=== PATIENT | male | born 1945 | race Two or more races ===

== ENCOUNTER 2025-10-28 03:06 | Inpatient (IN) | payer MEDICARE, MEDICAID ==
[~2025-10-28] VITALS: Ht 167.6 cm; Wt 55.5 kg
--- NOTE | 2025-10-28 03:48 | ED.PDOC ---
History of Present Illness HPI Comments 79 y/o M is BIBA from private residence for c/c of leaking Elaine catheter with associated suprapubic abdominal pain. Chief Complaint: Urinary Time Seen by MD: 03:40 Reviewed Notes: Nurses Notes, Tire Service Supervisor Notes, Medications, Allergies Allergies: Coded Allergies: Bupropion (Unverified Allergy, Unknown, 10/28/25) Information Source: Patient, Emergency Med Personnel Mode of Arrival: EMS Severity: Moderate Timing: Hours Duration: Since onset Prehospital treatment: None Past Medical History PAST MEDICAL HISTORY: Denies Social History Smoker: Non-Smoker Alcohol: Denies ETOH Use Drugs: Denies Drug Use Lives In: Home All Other Systems: Reviewed and Negative (As per HPI) Physical Exam General Appearance: No Apparent Distress, Normal HEENT: Normal ENT Inspection, Pharynx Normal, TMs Normal Neck: Full Range of Motion, Non-Tender, Normal, Normal Inspection Respiratory: Chest Non-Tender, Lungs Clear, No Accessory Muscle Use, No Respiratory Distress, Normal Breath Sounds Cardiovascular: No Edema, No JVD, No Murmur, No Gallop, Normal Peripheral Pulses, Regular Rate/Rhythm Breast Exam: Deferred Gastrointestinal: No Organomegaly, Non Tender, No Pulsatile Mass, Normal Bowel Sounds, Soft, Suprapubic (tenderness ), Tenderness (suprapubic) Genitalia: Other (leaking indwelling Elaine catheter) Pelvic: Deferred Rectal: Deferred Extremities: No calf tenderness, Normal capillary refill, Normal inspection, Normal range of motion, Non-tender, No pedal edema Musculoskeletal : Apperance: Normal Neurologic: Alert, project finance analyst II-XII nml as Tested, No Motor Deficits, Normal Affect, Normal Mood, No Sensory Deficits Cerebellar Function: Normal Reflexes: Normal Skin: Dry, Normal Color, Warm Lymphatic: No Adenopathy Was a procedure done? Was a procedure done?: No Differential Dx Considerations may include: Differential diagnosis includes but not limited to: UTI, pyelonephritis, urinary retention, renal failure, sepsis and others X-Ray, Labs, Meds, VS Vital Signs Date Time Temp Pulse Resp B/P (MAP) Pulse Ox O2 Delivery O2 Flow Rate FiO2 10/28/25 04:05 97.9 66 19 92/55 (67) 97 97.9 10/28/25 03:10 99.1 71 18 118/71 98 99.1 Lab Test 10/28/25 03:47 Range/Units White Blood Count 8.5 4.4-10.8 10^3/uL Red Blood Count 4.12 L 4.5-5.90 10^6/uL Hemoglobin 12.8 L 13.5-17.5 g/dL Hematocrit 38.8 L 41.0-53.0 % Mean Corpuscular Volume 94.1 80.0-100.0 fL Mean Corpuscular Hemoglobin 31.0 28.0-32.0 pg Mean Corpuscular Hemoglobin Concent 32.9 32.0-36.0 g/dL Red Cell Distribution Width 17.2 H 11.8-14.3 % Platelet Count 354 140-450 10^3/uL Mean Platelet Volume 8.3 6.9-10.8 fL Neutrophils (%) (Auto) 84.6 H 37.0-80.0 % Lymphocytes (%) (Auto) 9.0 L 10.0-50.0 % Monocytes (%) (Auto) 5.9 0.0-12.0 % Eosinophils (%) (Auto) 0.3 0.0-7.0 % Basophils (%) (Auto) 0.2 0.0-2.0 % Neutrophils # (Auto) 7.2 1.6-8.6 10 ^3/uL Lymphocytes # (Auto) 0.8 0.4-5.4 10 ^3/uL Monocytes # (Auto) 0.5 0-1.3 10 ^3/uL Eosinophils # (Auto) 0 0-0.8 10 ^3/uL Basophils # (Auto) 0 0-0.2 10 ^3/uL Nucleated Red Blood Cells 0.0 % Sodium Level 142 136-145 mmol/L Potassium Level 3.4 L 3.5-5.1 mmol/L Chloride Level 108 H 98-107 mmol/L Carbon Dioxide Level 24 20-31 mmol/L Anion Gap 10 5-15 Blood Urea Nitrogen 16 9-23 mg/dL Creatinine 1.09 0.700-1.30 mg/dL Glomerular Filtration Rate Calc 70 >90 mL/min BUN/Creatinine Ratio 14.7 10.0-20.0 Serum Glucose 95 74-106 mg/dL Calcium Level 8.9 8.7-10.4 mg/dL Time of 1ST Reevaluation: 04:20 Reevaluation 1ST: Unchanged Patient Education/Counseling: Diagnosis, Treatment Family Education/Counseling: No Family Present SEPSIS Sepsis Screen Date sepsis recognized/suspect: Oct 28, 2025 Time Sepsis recognized/suspect: 309 Recent Procedure: No On Antibiotic Therapy: No Respiratory Rate >20: No Heart Rate >90: No Temp<36 C (96.8 F) or >38.3 C: No SBP <90 or MAP <65 mmHG: No New Acute Mental Status Change: No Is the patient on CPAP, BIPAP,: No Physician Orders Discontinue Elaine Catheter (10/28/25 03:36) Insert Elaine Catheter QSHIFT (10/28/25 03:36) Urinalysis (10/28/25 03:36) Vital Signs Date Time Temp Pulse Resp B/P (MAP) Pulse Ox O2 Delivery O2 Flow Rate FiO2 10/28/25 04:05 97.9 66 19 92/55 (67) 97 97.9 10/28/25 03:10 99.1 71 18 118/71 98 99.1 Laboratory Tests Test 10/28/25 03:47 White Blood Count 8.5 10^3/uL (4.4-10.8) Departure 1 Departure Time of Disposition: 03:00 Impression: Primary Impression: Urinary retention Additional Impressions: Complication of Elaine catheter UTI (urinary tract infection) Disposition: 01 HOME / SELF CARE / HOMELESS Condition: Stable Discharged With: Self Critical Care Note Critical Care Time?: No Stability Stability form required: No Heart Score Heart Score: Heart Score Response (Comments) Value History N/A 0 EKG N/A 0 Age N/A 0 Risk Factors N/A 0 Troponin N/A 0 Total 0 I personally scribed for ALEJANDRA OBREGON MD ([email or web address]) on 10/28/25 at 03:48. Electronically submitted by Chris Wade [email or web address]). ALEJANDRA OBREGON MD Oct 28, 2025 03:48
[2025-10-28 04:15] LABS: Hematocrit 38.8 % (41.0-53.0); Hemoglobin 12.8 g/dL (13.5-17.5); Mean Corpuscular Hemoglobin 31.0 pg (28.0-32.0); Mean Corpuscular Volume 94.1 fL (80.0-100.0); Nucleated Red Blood Cells % 0.0 %
[2025-10-28 04:31] LABS: Sodium 142 mmol/L (136-145)
[2025-10-28 04:32] LABS: Anion Gap 10 (5-15); Carbon Dioxide 24 mmol/L (20-31)
[2025-10-28 04:33] LABS: Calcium 8.9 mg/dL (8.7-10.4)
[2025-10-28 04:37] LABS: Glucose 95 mg/dL (74-106)
[2025-10-28 04:38] LABS: BUN/Creatinine Ratio 14.7 (10.0-20.0); Blood Urea Nitrogen 16 mg/dL (9-23)
[2025-10-28 04:47] LABS: Chloride 108 mmol/L (98-107); Potassium 3.4 mmol/L (3.5-5.1)
[2025-10-28] MEDS ORDERED: NITR-87 PO (05:41)
[2025-10-28] MEDS: cefTRIAXone W LIDOCAINE 1 GM IM IM ONE (06:09)
[2025-10-28] MEDS: cefTRIAXone SOD 1,000 MG VL ONE (06:10)
[2025-10-28] MEDS: LIDOCAINE 2%HCL (LOCAL ANESTH.) INJ 10ml MDV ONE (06:10)
[2025-10-28 07:30] LABS: Urine Protein, UAD TRACE (Negative); Urine WBC Clumps PRESENT /hpf (None Seen)
[2025-10-28 07:50] VITALS: PULSE 62; RESP 16; O2SAT 97
[2025-10-28 19:52] VITALS: PULSE 72; RESP 24; O2SAT 95
[2025-10-29] MEDS: ACETAMINOPHEN 325 MG TAB PO ONE (05:47)
--- NOTE | 2025-10-29 09:44 | ED.PDOC ---
Departure 1 Departure Time of Disposition: 09:43 (Patient is not septic. Patient presents with a catheter associated urinary tract infection. Patient with a complicated UTI and we will admit patient for further workup and expert consultation) Impression: Primary Impression: Urinary retention Additional Impressions: UTI (urinary tract infection) Complication of Elaine catheter Disposition: 09 ADMITTED INPATIENT Admit to: Med Surg Condition: Guarded e-Prescriptions Nitrofurantoin Monohydrate Mac (Macrobid) 100 Mg Cap 100 MG PO BID for 10 Days, #20 CAP Prov: ALEJANDRA OBREGON MD 10/28/25 Discharged With: Self ANDREINA PURI MD Oct 29, 2025 09:44
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
[2025-10-29] MEDS ORDERED: ONDANSETRON HCL 4 MG/2 ML VIAL IV PRN (13:15)
[2025-10-29] MEDS ORDERED: NITROGLYCERIN 0.4 MG SL TAB SL PRN (13:15)
[2025-10-29] MEDS ORDERED: DOCUSATE SOD 100 MG CAP PO PRN (13:15)
[2025-10-29 14:22] VITALS: RESP 15; O2SAT 98
[2025-10-29 15:25] VITALS: RESP 18
[2025-10-29 17:00] VITALS: BP 118/56; PULSE 62; RESP 18; TEMP 97.9; O2SAT 97
[2025-10-29 20:00] VITALS: PULSE 60; RESP 17
[2025-10-29 21:00] VITALS: BP 124/64; PULSE 59; RESP 18; TEMP 97.9; O2SAT 97
[2025-10-29] MEDS ORDERED: ACETAMINOPHEN 325 MG TAB PO PRN (23:15)
[2025-10-30] VITALS (8 sets, daily range): BP systolic 102–123; BP diastolic 52–77; PULSE 58–98; RESP 18–93; TEMP 97.9–99.1; O2SAT 90–96
[2025-10-30] MEDS: ACETAMINOPHEN 500 MG TAB or CAP PO PRN (00:14)
[2025-10-30 06:24] LABS: Hematocrit 31.5 % (41.0-53.0); Hemoglobin 10.6 g/dL (13.5-17.5); Mean Corpuscular Hemoglobin 31.3 pg (28.0-32.0); Mean Corpuscular Volume 93.3 fL (80.0-100.0); Nucleated Red Blood Cells % 0.0 %
[2025-10-30 06:46] LABS: Alkaline Phosphatase 86 U/L (46-116); Anion Gap 8 (5-15); BUN/Creatinine Ratio 16.7 (10.0-20.0); Blood Urea Nitrogen 14 mg/dL (9-23); Carbon Dioxide 24 mmol/L (20-31); Glucose 91 mg/dL (74-106)
[2025-10-30 06:51] LABS: Alanine Aminotransferase < 9 U/L (7-40); Albumin 2.8 g/dL (3.2-4.8); Bilirubin, Total 0.2 mg/dL (0.2-1.0); Calcium 8.3 mg/dL (8.7-10.4); Chloride 114 mmol/L (98-107); Potassium 3.4 mmol/L (3.5-5.1); Sodium 146 mmol/L (136-145); Total Protein 5.3 g/dL (5.7-8.2)
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
[2025-10-31 05:00] VITALS: BP 118/66; PULSE 56; RESP 18; TEMP 97.4; O2SAT 95
[2025-10-31 08:00] VITALS: RESP 17
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
[2025-10-31 13:00] VITALS: BP 105/57; PULSE 86; RESP 18; TEMP 98.4; O2SAT 90
[2025-10-31 17:00] VITALS: BP 112/68; PULSE 92; RESP 17; TEMP 98.6; O2SAT 92
[2025-10-31 19:37] VITALS: RESP 17
[2025-10-31 21:00] VITALS: BP 108/63; PULSE 74; RESP 18; TEMP 99.1; O2SAT 92
[2025-11-01] VITALS (8 sets, daily range): BP systolic 117–155; BP diastolic 59–98; PULSE 66–74; RESP 16–20; TEMP 98.1–99; O2SAT 91–97
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
--- NOTE | 2025-11-01 15:24 | MEDREC ---
[facility] Intervention Section I [facility] Intervention: Deescalate AB based on CS (FINAL URINE CULTURE WITH NO GROWTH - PLEASE CONSIDER D/C ANTIBIOTIC IN ABSENCE OF BACTERIAL INFECTION) Assessment of apprpriate abx f: UTI KE VILLA PHARMACIST Nov 01, 2025 15:24
[2025-11-02] VITALS (8 sets, daily range): BP systolic 100–139; BP diastolic 64–93; PULSE 64–104; RESP 16–18; TEMP 97.8–98.4; O2SAT 92–98
[2025-11-02 11:16] LABS: Potassium 4.6 mmol/L (3.5-5.1); Sodium 143 mmol/L (136-145)
[2025-11-02 11:17] LABS: Anion Gap 7 (5-15); Carbon Dioxide 26 mmol/L (20-31)
[2025-11-02 11:19] LABS: Calcium 8.3 mg/dL (8.7-10.4); Chloride 110 mmol/L (98-107)
[2025-11-02 11:22] LABS: BUN/Creatinine Ratio 18.3 (10.0-20.0); Blood Urea Nitrogen 17 mg/dL (9-23); Glucose 106 mg/dL (74-106)
[2025-11-02 13:48] LABS: Hematocrit 35.6 % (41.0-53.0); Hemoglobin 11.8 g/dL (13.5-17.5); Mean Corpuscular Hemoglobin 31.1 pg (28.0-32.0); Mean Corpuscular Volume 94.0 fL (80.0-100.0); Nucleated Red Blood Cells % 0.1 %
--- NOTE | 2025-11-02 14:07 | DVHDS2 ---
Discharge Summary Date of Admission Oct 29, 2025 at 13:01 Labs/Diagnostic Data: Laboratory Results Test 11/02/25 13:16 11/02/25 10:36 10/30/25 05:25 10/28/25 03:36 White Blood Count 8.0 10^3/uL (4.4-10.8) Red Blood Count 3.79 10^6/uL (4.5-5.90) Hemoglobin 11.8 g/dL (13.5-17.5) Hematocrit 35.6 % (41.0-53.0) Mean Corpuscular Volume 94.0 fL (80.0-100.0) Mean Corpuscular Hemoglobin 31.1 pg (28.0-32.0) Mean Corpuscular Hemoglobin Concent 33.0 g/dL (32.0-36.0) Red Cell Distribution Width 17.5 % (11.8-14.3) Platelet Count 251 10^3/uL (140-450) Mean Platelet Volume 8.6 fL (6.9-10.8) Neutrophils (%) (Auto) 85.8 % (37.0-80.0) Lymphocytes (%) (Auto) 8.0 % (10.0-50.0) Monocytes (%) (Auto) 4.6 % (0.0-12.0) Eosinophils (%) (Auto) 1.3 % (0.0-7.0) Basophils (%) (Auto) 0.3 % (0.0-2.0) Neutrophils # (Auto) 6.8 10 ^3/uL (1.6-8.6) Lymphocytes # (Auto) 0.6 10 ^3/uL (0.4-5.4) Monocytes # (Auto) 0.4 10 ^3/uL (0-1.3) Eosinophils # (Auto) 0.1 10 ^3/uL (0-0.8) Basophils # (Auto) 0 10 ^3/uL (0-0.2) Nucleated Red Blood Cells 0.1 % Sodium Level 143 mmol/L (136-145) Potassium Level 4.6 mmol/L (3.5-5.1) Chloride Level 110 mmol/L (98-107) Carbon Dioxide Level 26 mmol/L (20-31) Anion Gap 7 (5-15) Blood Urea Nitrogen 17 mg/dL (9-23) Creatinine 0.93 mg/dL (0.700-1.30) Glomerular Filtration Rate Calc 85 mL/min (>90) BUN/Creatinine Ratio 18.3 (10.0-20.0) Serum Glucose 106 mg/dL (74-106) Calcium Level 8.3 mg/dL (8.7-10.4) Total Bilirubin 0.2 mg/dL (0.2-1.0) Aspartate Amino Transferase (AST) 16 U/L (13-40) Alanine Aminotransferase (ALT) < 9 U/L (7-40) Alkaline Phosphatase 86 U/L (46-116) Total Protein 5.3 g/dL (5.7-8.2) Albumin 2.8 g/dL (3.2-4.8) Urine Color Light-yellow (Yellow) Urine Clarity Cloudy (Clear) Urine pH 6.0 (5.0-9.0) Urine Specific [place] 1.010 (1.001-1.035) Urine Protein Trace (Negative) Urine Ketones Negative (Negative) Urine Blood 1+ /uL (Negative) Urine Nitrite Negative (Negative) Urine Bilirubin Negative (Negative) Urine Urobilinogen Normal mg/dL (Negative) Urine Leukocyte Esterase 3+ /uL (Negative) Urine RBC 7 /hpf (0 - 3) Urine WBC Clumps Present /hpf (None Seen) Urine Microscopic WBC 604 /HPF (0-3) Urine Squamous Epithelial Cells Few /hpf (<5) Urine Bacteria Few /hpf (None Seen) Urine Glucose 4+ mg/dL (Normal) Other Laboratory Tests 11/02/25 13:16 11/02/25 10:36 Discharge Instruct/Medications Scheduled Ciprofloxacin Hcl (Cipro), 1 TAB PO BID Nitrofurantoin Monohydrate Mac (Macrobid), 100 MG PO BID Discharge Statement: "Patient was advised to return to the ER or call 911 if any headaches, dizziness, shortness of breath, chest pain, abdominal pain, bleeding, fevers, or worsening of medical condition. Patient was counseled about treatment plan, medications, possible side effects, patientverbalized understanding. All questions were answered to the best of my ability. This discharge took greater then 30 minutes in planning, reviewing documentation, counseling the patient, and discussing with other team members." ASSESSMENT ASSESSMENT Assessment JANI ASHLEY NP Nov 02, 2025 14:07
[2025-11-02] MEDS ORDERED: CIPR-173 PO (14:08)
--- NOTE | 2025-11-02 20:10 | DVHPN2 ---
Progress Note - Dictate Date Seen: Nov 02, 2025 Medical Necessity Reason Pt with a Central, PICC or Fol: No vital signs Vital Sign Date Time Temp Pulse Resp B/P (MAP) Pulse Ox O2 Delivery O2 Flow Rate FiO2 11/02/25 16:36 97.8 78 16 124/77 (93) 92 97.8 11/02/25 08:00 Room Air* 0 21 Total Intake and Output 11/01/25 11/01/25 11/02/25 15:00 23:00 07:00 Intake Total 818 ml 560 ml Output Total 650 ml 800 ml Balance 168 ml -240 ml medications Current Medications Medications Dose Ordered Sig/Tu Route Start Time Stop Time Status Last Admin Dose Admin Ondansetron HCl 4 mg Q4HP PRN IV 10/29/25 13:15 Docusate Sodium 100 mg BIDPRN PRN PO 10/29/25 13:15 Nitroglycerin 0.4 mg Q5MINP PRN SL 10/29/25 13:15 Ceftriaxone Sodium 50 ml @ 100 mls/hr DAILY@09 IV 10/30/25 09:00 11/02/25 10:02 100 MLS/HR Acetaminophen 500 mg Q6HP PRN PO 10/29/25 23:45 11/01/25 16:54 500 MG objective General Appearance: alert, no distress HEENT: EOMI, PERRLA, normal external inspect of ears, no icterus, no nasal drainage Neck: no carotid bruit, no jugular venous distention (JVD), no lymphadenopathy Chest: normal thorax Respiratory: clear to auscultation, normal air movement Cardiovascular: regular rate and rhythm, no diastolic murmur, no jugular venous distention (JVD), no rub, no systolic murmur Abdominal: soft, no hepatomegaly, no mass, no splenomegaly, no tenderness Genitourinary: grossly normal external Musculoskeletal: no joint tenderness, no swelling Extremities: normal pulses, no calf tenderness, no clubbing, no cyanosis, no edema Skin: no bruising, no jaundice, no rash Neurological: alert, No focal deficit laboratory and microbiology Laboratory Tests 11/02/25 13:16 11/02/25 10:36 Test 11/02/25 10:36 Range/Units Serum Glucose 106 74-106 mg/dL Problem List 1. Sepsis from UTI Monitor, IV abx 2. 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 Smoker Monitor, smoking cessation education 5. Homelessness Monitor, social science professor consult Assessment/Plan Subjective: Patient is awake and alert. Objective: Patient was admitted on 10/29/2025 for sepsis related to UTI. UTI was in relation to a chronic Barrios catheter. Patient is homeless and had not received any follow-up from his prior admission several months ago. Patient was found to have acute urinary retention and a new Barrios catheter was placed. Patient was found to be leaking from the Barrios catheter, and a new 18 [place] Barrios catheter was placed. Patient is a chronic smoker. tax services manager was consulted, and patient was placed in a skilled nursing. Plan: Home health services arranged to replace Barrios catheter monthly. Smoking education given. Continue antibiotics with oral Cipro twice daily for 7 days, sent to [facility] pharmacy. Patient instructed to establish with a primary care provider. Ride could not be arranged until morning, so discharge planned for the morning. Plan discussed with: Patient, Other JANI ASHLEY NP Nov 02, 2025 20:10
[2025-11-03 01:00] VITALS: BP_SYST 103; BP_SYST 148; BP_DIAS 60; BP_DIAS 99; PULSE 74; PULSE 77; RESP 17; RESP 18; TEMP 98.1; TEMP 99.6; O2SAT 94; O2SAT 99
[2025-11-03 05:00] VITALS: BP 112/72; PULSE 69; RESP 18; TEMP 98.1; O2SAT 94
[2025-11-03 08:50] VITALS: BP 128/74; PULSE 65; RESP 14; TEMP 97.9; O2SAT 95
[2025-11-03 12:50] VITALS: BP 122/64; PULSE 64; RESP 14; TEMP 97.8; O2SAT 95
--- NOTE | 2025-11-03 13:06 | DVHDS2 ---
Discharge Summary Date of Admission Oct 29, 2025 at 13:01 Date of Discharge: Nov 02, 2025 Labs/Diagnostic Data: Laboratory Results Test 11/02/25 13:16 11/02/25 10:36 10/30/25 05:25 10/28/25 03:36 White Blood Count 8.0 10^3/uL (4.4-10.8) Red Blood Count 3.79 10^6/uL (4.5-5.90) Hemoglobin 11.8 g/dL (13.5-17.5) Hematocrit 35.6 % (41.0-53.0) Mean Corpuscular Volume 94.0 fL (80.0-100.0) Mean Corpuscular Hemoglobin 31.1 pg (28.0-32.0) Mean Corpuscular Hemoglobin Concent 33.0 g/dL (32.0-36.0) Red Cell Distribution Width 17.5 % (11.8-14.3) Platelet Count 251 10^3/uL (140-450) Mean Platelet Volume 8.6 fL (6.9-10.8) Neutrophils (%) (Auto) 85.8 % (37.0-80.0) Lymphocytes (%) (Auto) 8.0 % (10.0-50.0) Monocytes (%) (Auto) 4.6 % (0.0-12.0) Eosinophils (%) (Auto) 1.3 % (0.0-7.0) Basophils (%) (Auto) 0.3 % (0.0-2.0) Neutrophils # (Auto) 6.8 10 ^3/uL (1.6-8.6) Lymphocytes # (Auto) 0.6 10 ^3/uL (0.4-5.4) Monocytes # (Auto) 0.4 10 ^3/uL (0-1.3) Eosinophils # (Auto) 0.1 10 ^3/uL (0-0.8) Basophils # (Auto) 0 10 ^3/uL (0-0.2) Nucleated Red Blood Cells 0.1 % Sodium Level 143 mmol/L (136-145) Potassium Level 4.6 mmol/L (3.5-5.1) Chloride Level 110 mmol/L (98-107) Carbon Dioxide Level 26 mmol/L (20-31) Anion Gap 7 (5-15) Blood Urea Nitrogen 17 mg/dL (9-23) Creatinine 0.93 mg/dL (0.700-1.30) Glomerular Filtration Rate Calc 85 mL/min (>90) BUN/Creatinine Ratio 18.3 (10.0-20.0) Serum Glucose 106 mg/dL (74-106) Calcium Level 8.3 mg/dL (8.7-10.4) Total Bilirubin 0.2 mg/dL (0.2-1.0) Aspartate Amino Transferase (AST) 16 U/L (13-40) Alanine Aminotransferase (ALT) < 9 U/L (7-40) Alkaline Phosphatase 86 U/L (46-116) Total Protein 5.3 g/dL (5.7-8.2) Albumin 2.8 g/dL (3.2-4.8) Urine Color Light-yellow (Yellow) Urine Clarity Cloudy (Clear) Urine pH 6.0 (5.0-9.0) Urine Specific [place] 1.010 (1.001-1.035) Urine Protein Trace (Negative) Urine Ketones Negative (Negative) Urine Blood 1+ /uL (Negative) Urine Nitrite Negative (Negative) Urine Bilirubin Negative (Negative) Urine Urobilinogen Normal mg/dL (Negative) Urine Leukocyte Esterase 3+ /uL (Negative) Urine RBC 7 /hpf (0 - 3) Urine WBC Clumps Present /hpf (None Seen) Urine Microscopic WBC 604 /HPF (0-3) Urine Squamous Epithelial Cells Few /hpf (<5) Urine Bacteria Few /hpf (None Seen) Urine Glucose 4+ mg/dL (Normal) Other Laboratory Tests 11/02/25 13:16 11/02/25 10:36 Brief Hx & Hospital Course: 79 year old male was admitted on 10/29/2025 for sepsis related to UTI. UTI was in relation to a chronic Barrios catheter. He was found to have UTI and was treated with antibiotics. Barrios catheter was exchanged. patient services rep was consulted and patient was placed in a correction. Home health services arranged to replace Barrios catheter monthly. Smoking education given. He is to continue antibiotics with oral Cipro twice daily for 7 days, sent to [facility] pharmacy. Patient instructed to establish with a primary care provider. The patient received proper medical treatment and medications. Vital signs, Imaging and Laboratory Work was monitored. All consults recommendations were followed as provided. There were no complaints or new complaints upon discharge, all questions and concerns were answered. Patient was advised to return to the ER or call 911 if any headaches, dizziness, shortness of breath, chest pain, bleeding, fevers, or worsening of medical condition. Patient/Family was counseled about treatment plan, medications, possible side effects, patientverbalized understanding. All questions were answered to the best of my ability. The patient symptoms improved and they are okay to be DC. Condition at Discharge: Good Final Diagnosis/Problems List UTI related to chronic barrios acute urinary retention sepsis from UTI smoker Secondary Diagnosis: Sepsis from UTI Acute urinary retention Chronic Barrios Smoker Homelessness Discharge Disposition: Home with Health Services Discharge Instruct/Medications Diet: Cardiac 2g Na,low cholest Activity: No Restrictions, As Tolerated Follow Up/Referral: pcp 1 week Scheduled Ciprofloxacin Hcl (Cipro), 1 TAB PO BID Nitrofurantoin Monohydrate Mac (Macrobid), 100 MG PO BID Discharge Statement: "Patient was advised to return to the ER or call 911 if any headaches, dizziness, shortness of breath, chest pain, abdominal pain, bleeding, fevers, or worsening of medical condition. Patient was counseled about treatment plan, medications, possible side effects, patientverbalized understanding. All questions were answered to the best of my ability. This discharge took greater then 30 minutes in planning, reviewing documentation, counseling the patient, and discussing with other team members." ASSESSMENT ASSESSMENT Assessment UTI related to chronic barrios acute urinary retention sepsis from UTI smoker JANI ASHLEY NP Nov 03, 2025 13:06
== END 2025-11-03 14:33 | disposition home health service (06) | DRG 698 ==
LOC: EDSEX 03:06 → EDBD 03:06 → ER 03:06 → WEST WING 13:03 → OVERFLOW 10-29 13:01 → WEST WING 10-29 15:33
PROVIDERS: ADMIT Nurse Practitioner; ATTEND Nurse Practitioner
DX: T83.518A Infection and inflammatory reaction due to other urinary catheter, initial encounter (principal); A41.9 Sepsis, unspecified organism; N39.0 Urinary tract infection, site not specified; Z59.00 Homelessness unspecified; E87.6 Hypokalemia; F17.200 Nicotine dependence, unspecified, uncomplicated; Z71.6 Tobacco abuse counseling; Z91.199 Patient's noncompliance with other medical treatment and regimen due to unspecified reason; Y84.6 Urinary catheterization as the cause of abnormal reaction of the patient, or of later complication, without mention of misadventure at the time of the procedure; Y92.89 Other specified places as the place of occurrence of the external cause; Z79.899 Other long term (current) drug therapy
CPT/HCPCS: 36415; 80048; 80053; 81001; 85025; 87040; 87086; 96372; G0378; J0696; J2003